=== PATIENT | male | born 1965 | race Caucasian/White ===

== ENCOUNTER 2024-08-30 06:37 | Day surgery (SDC) | payer OTHER, SELFPAY ==
[2024-08-20 14:02] VITALS: BMI 34.8
[2024-08-30 11:07] VITALS: BMI 34.8
[2024-08-30 11:17] VITALS: BP 142/82
[2024-08-30] MEDS: TYLENOL 1000 MG PO (11:24)
[2024-08-30] MEDS: CELEBREX 200 MG PO (11:25)
[2024-08-30 12:53] VITALS: BP 128/74; BP 142/82
[2024-08-30 13:00] VITALS: BP 147/74
[2024-08-30] MEDS: SUBLIMAZE 50 MCG IV ×2 (13:02→13:20)
[2024-08-30 13:15] VITALS: BP 127/83
[2024-08-30 14:05] VITALS: BP 144/78
== END 2024-08-30 14:47 | disposition home or self-care (01) ==
LOC: SDS 06:37
PROVIDERS: ATTENDING PHYSICIAN Orthopaedic Surgery; FAMILY PHYSICIAN Family Medicine
DX: S83.232A Complex tear of medial meniscus, current injury, left knee, initial encounter (principal); M17.12 Unilateral primary osteoarthritis, left knee; X58.XXXA Exposure to other specified factors, initial encounter
CPT/HCPCS: 29881; 36415; 93005